=== PATIENT | female | born 1985 | race Caucasian/White ===

== ENCOUNTER 2022-12-22 12:54 | Inpatient (IN) | payer MEDICAID ==
[~2022-12-22] VITALS: Ht 160 cm; Wt 74.7 kg
[2022-12-22 13:17] LABS: BASOPHILS # (AUTO) 0.1 X10'3 (0-0.2); BASOPHILS % (AUTO) 0.9 % (0-1); EOSINOPHILS # (AUTO) 0.1 X10'3 (0-0.9); EOSINOPHILS % (AUTO) 0.9 % (0-6); HEMATOCRIT 40.4 % (35.0-45.0); HEMOGLOBIN 13.2 g/dl (12.0-16.0); LYMPHOCYTES # (AUTO) 2.3 X10'3 (1.1-4.8); LYMPHOCYTES % (AUTO) 25.1 % (21-51); MEAN CORPUSCULAR HEMOGLOBIN 28.3 PG (27.0-31.0); MEAN CORPUSCULAR HGB CONC 32.7 g/dL (33.0-36.5); MEAN CORPUSCULAR VOLUME 86.5 FL (78-98); MEAN PLATELET VOLUME 7.9 FL (7.4-10.4); MONOCYTES # (AUTO) 0.8 X10'3 (0-0.9); MONOCYTES % (AUTO) 9.2 % (2-12); NEUTROPHILS # (AUTO) 5.8 X10'3 (1.8-7.7); NEUTROPHILS % (AUTO) 63.9 % (42-75); PLATELET COUNT 317 X10'3 (140-440); RED BLOOD COUNT 4.67 X10'6 (4.20-5.60); RED CELL DISTRIBUTION WIDTH 15.4 % (11.5-14.5)
[2022-12-22] MEDS ORDERED: LORazepam 2 mg/ml vial ONE (13:52)
[2022-12-22] MEDS ORDERED: haloperidol lactate 5mg/ml inj ONE (13:53)
[2022-12-22] MEDS ORDERED: diphenhydrAMINE 50 mg/ml inj ONE (13:54)
--- NOTE | 2022-12-22 14:16 | NUR ---
Patient screaming "Put me in the insane assylum!", over and over and over again. Patient is suffering and given I.M. medications. Patient then talks to herself about being in the insane assylum. Continue to monitor.
[2022-12-22 14:27] LABS: URINE HCG NEGATIVE (NEG)
[2022-12-22 14:28] LABS: BILIRUBIN,URINE NEGATIVE (Neg); CLARITY,URINE SLIGHTLY CLOUDY (Clear); COLOR,URINE YELLOW (Yellow); GLUCOSE, URINE NEGATIVE (Neg); KETONES,URINE 15 mg/dl (Neg); LEUKOCYTE ESTERASE ,URINE TRACE (Neg); NITRITES, URINE NEGATIVE (Neg); OCCULT BLOOD,URINE NEGATIVE (Neg); PH,URINE 5.5 (4.8-8.0); PROTEIN,URINE NEGATIVE (Neg); UROBILINOGEN,URINE 0.2 E.U/dL (0.2-1.0)
[2022-12-22 14:37] LABS: URINE AMPHETAMINE SCREEN NEGATIVE (Neg); URINE BARBITUATE SCREEN NEGATIVE (Neg); URINE BENZODIAZEPINES SCREEN NEGATIVE (Neg); URINE CANNABINOID SCREEN NEGATIVE (Neg); URINE COCAINE SCREEN NEGATIVE (Neg); URINE METHADONE SCREEN NEGATIVE (Neg); URINE OPIATE SCREEN NEGATIVE (Neg); URINE PHENCYCLIDINE SCREEN NEGATIVE (Neg)
[2022-12-22 14:44] LABS: UA COLLECTION TYPE CLN CATCH MIDSTREAM
[2022-12-22 14:46] LABS: BACTERIA,URINE 1+ /HPF (Neg); MUCUS STRANDS MANY /LPF (Neg); RBC,URINE NONE SEEN /HPF (0-2); SQUAMOUS EPITHELIAL CELL,UR MANY /LPF (FEW); WBC,URINE 0-4 /HPF (0-4)
--- NOTE | 2022-12-22 14:54 | NUR ---
Patient is now calm. Patient is only oriented to self. 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 She is in the city of "[place]." Does not know the year. Patient attempting to call her sister on the phone but does not remember the phone number. Continue to monitor.
--- NOTE | 2022-12-22 14:56 | NUR ---
No external Meds noted. Patient states she doesn't have a doctor.
--- NOTE | 2022-12-22 17:03 | NUR ---
Patient continues to sleep. No distress observed. Continue to monitor.
--- NOTE | 2022-12-22 19:11 | NUR ---
Patient continues to sleep but easily awakens to voice. Respirations nonlabored. Continue to monitor.
[2022-12-22] MEDS: OLANZAPINE 5 MG TABLET PO SCH (20:00)
--- NOTE | 2022-12-22 21:10 | NUR ---
Patient sleeping on her left side. Respirations nonlabored. No distress observed. Continue with the plan of care which is evaluation with [facility] Therapist tomorrow.
--- NOTE | 2022-12-22 23:07 | NUR ---
Patient sleeping prone. Respirations nonlabored. No distress observed. Continue to monitor.
[2022-12-22] MEDS: nitrofuran monohydrate/nitrofuran macrocrysal 100 MG (MacroBID) capsule PO SCH (23:16)
--- NOTE | 2022-12-23 01:11 | NUR ---
Patient appears to be sleeping. Nonlabored respirations. Continue to monitor.
--- NOTE | 2022-12-23 03:08 | NUR ---
Patient sleeping on her right side. Respirations nonlabored. No distress observed. Continue to monitor.
--- NOTE | 2022-12-23 04:38 | NUR ---
Patient's packet faxed to [facility].
--- NOTE | 2022-12-23 07:15 | NUR ---
Pt was up used bathroom. Pt encouraged to drink fluids and given fresh pitcher of ice water.
[2022-12-23] MEDS: nitrofuran monohydrate/nitrofuran macrocrysal 100 MG (MacroBID) capsule PO SCH ×2 (07:22→20:59)
[2022-12-23] MEDS: OLANZAPINE 5 MG TABLET PO SCH ×2 (07:25→20:59)
--- NOTE | 2022-12-23 09:05 | NUR ---
Pt resting with eyes closed and noted repositioning self intermittently.
--- NOTE | 2022-12-23 13:15 | NUR ---
SPOKE WITH IMAN FROM [facility], REPORT GIVEN FOR POSSIBLE PLACEMENT
--- NOTE | 2022-12-23 18:50 | NUR ---
Patient up at nurses station asking to use the phone. Patient finally got the correct number and called her sister. No distress observed. Continue to monitor.
--- NOTE | 2022-12-23 20:07 | NUR ---
Patient coloring in her room. No distress observed. Continue to monitor.
--- NOTE | 2022-12-23 22:40 | NUR ---
Patient sleeping prone. Nonlabored respirations. Continue with the plan of care.
--- NOTE | 2022-12-24 00:19 | NUR ---
Patient sleeping on her left side. Respirations nonlabored. No distress observed. Continue to monitor.
--- NOTE | 2022-12-24 02:03 | NUR ---
Patient sleeping supine. Respirations equal and nonlabored. No distress observed. Continue to monitor.
--- NOTE | 2022-12-24 04:05 | NUR ---
Patient sleeping prone. No distress observed. Continue to monitor.
--- NOTE | 2022-12-24 05:55 | NUR ---
RN awoke patient to drink some water. No distress observed. Continue to monitor.
--- NOTE | 2022-12-24 06:56 | NUR ---
Patient sleeping on her left side. Respirations nonlabored. No distress observed. Continue to monitor.
[2022-12-24] MEDS: nitrofuran monohydrate/nitrofuran macrocrysal 100 MG (MacroBID) capsule PO SCH ×2 (08:04→21:06)
[2022-12-24] MEDS: OLANZAPINE 5 MG TABLET PO SCH (08:04)
--- NOTE | 2022-12-24 09:00 | NUR ---
Relieved primary nurse for a break. Pt lying in bed on her left side, appears to be sleeping, has not eaten her breakfast.
--- NOTE | 2022-12-24 13:52 | NUR ---
Patient wandering around the unit, comes to nursing station and repeatedly asks the same questions over and over.
--- NOTE | 2022-12-24 14:13 | NUR ---
HERE TECH RELIEF OF 10 AM. PT. ASKS MANY QUESTIONS, NO SI OR HI. PT PLANS TO HAVE VISITORS FROM HER YARSANI SHE GAVE PERMISSION TO COME TO SEE HER AND KNOW WHERE SHE IS, SHE ASKED TO HAVE HER MOORE COME TO SEE HER AND APPARENTLY CONTACTED HIM, PER THE MOORE.
--- NOTE | 2022-12-24 15:01 | NUR ---
Note ricki in ED - 12/24/22 at 1503 by GIOVANNI Patient awake on his bed. Mother is with [facility] cut off worker in her office. No s/sx of distress.
--- NOTE | 2022-12-24 15:04 | NUR ---
Patient pacing around in her room. Her visitors have left, and patient's back to asking questions that have already been answered.
--- NOTE | 2022-12-24 16:45 | NUR ---
Telma from [facility] came down and spoke to patient. She presented to [facility] who has accepted her to [facility].
[2022-12-24] MEDS ORDERED: acetaminophen 325mg tablet PO PRN ×2 (17:50)
[2022-12-24] MEDS ORDERED: magnesium hydroxide 30ml (MOM) UD suspension PO PRN (17:50)
[2022-12-24] MEDS ORDERED: mag hydrox/Alum hydrox/simeth 30ml oral suspension PO PRN (17:50)
[2022-12-24] MEDS ORDERED: loperamide 2mg capsule PO PRN (17:50)
--- NOTE | 2022-12-24 19:00 | NUR ---
Nursing Admission Note: The patient is a 37 year old female admitted on a 5150 hold for being a danger to herself and others. She was brought to the ER by [facility] law enforcement after she had repeated arrests for trespassing and stalking a former co-worker at [employer] where she had worked. She has been fired from her job. She currently has harassment and stalking charges pending. She has a mental health hx in [place]. On presentation to the ER she was agitated and yelling "I need to be in an insane asylum!" and was making delusional statements and was poorly oriented. On [facility] she presented as very anxious and was disorganized. She repeatedly forgot where her room was and she was poorly oriented to month.
[2022-12-24] MEDS ORDERED: NO HOME MEDS (19:44)
[2022-12-24] MEDS ORDERED: traZODone 50mg tablet PO PRN (19:45)
[2022-12-24 19:50] VITALS: BP 140/91; PULSE 83; RESP 18; TEMP 98.1; O2SAT 97
[2022-12-24] MEDS ORDERED: olanzapine 10mg tablet PO ONE (19:55)
[2022-12-24 20:50] VITALS: RESP 18; O2SAT 97
[2022-12-25 07:29] VITALS: BP 114/63; PULSE 87; RESP 16; TEMP 98.4; O2SAT 96
[2022-12-25 07:30] VITALS: RESP 16; O2SAT 96
[2022-12-25] MEDS: nitrofuran monohydrate/nitrofuran macrocrysal 100 MG (MacroBID) capsule PO SCH ×2 (09:43→20:14)
--- NOTE | 2022-12-25 17:49 | NUR ---
Nursing Progress Note Problem: The patient is a 37 year old female admitted on a 5150 hold for being a danger to herself and others. She was brought to the ER by [facility] law enforcement after she had repeated arrests for trespassing and stalking a former co-worker at [employer] where she had worked. She has been fired from her job. She currently has harassment and stalking charges pending. She has a mental health hx in [place]. On presentation to the ER she was agitated and yelling "I need to be in an insane asylum!" and was making delusional statements and was poorly oriented. Interventions: Introduced self and established rapport, maintained a safe and supportive environment, ensured contract for safety, provided clear and simple instructions, attempted to orient to reality, and maintained Q 15 min safety checks. Response: RN received pt. asleep in bed at start of shift. Pt. awoke for breakfast and took all medications. Pt. ate all meals in the community room. 1:1 done at bedside, pt. denies all psych symptoms. Pt. repeatedly asks if she will be discharged. Pt. gives minimal response regarding her reason for admission. Pt. mostly responds with one word replies. Pt. observed making multiple phone calls. Pt. perseverates on discharge. Pt. placed on 5250. In the afternoon pt. upset while talking on the phone and talking loudly. Pt. was able to calm down. Plan: Pt. continues to require medication adjustments and a safe and supportive environment.
[2022-12-25 19:45] VITALS: BP 147/87; PULSE 120; RESP 16; TEMP 98.5; O2SAT 99
--- NOTE | 2022-12-26 04:50 | NUR ---
Nursing Progress Note Problem: The patient is a 37 year old female admitted on a 5150 hold for being a danger to herself and others. She was brought to the ER by [facility] law enforcement after she had repeated arrests for trespassing and stalking a former co-worker at [employer] where she had worked. She has been fired from her job. She currently has harassment and stalking charges pending. She has a mental health hx in [place]. On presentation to the ER she was agitated and yelling "I need to be in an insane asylum!" and was making delusional statements and was poorly oriented. Interventions: Introduced self and established rapport, maintained a safe and supportive environment, ensured contract for safety, provided clear and simple instructions, attempted to orient to reality, and maintained Q 15 min safety checks. Response: Patient pleasant and cooperative with care; compliant with medication. PRN Trazodone provided. She denied SI, HI, A/VH. Patient expressed she has housing and access to food and clothing. She expressed she had a male peer at [employer] that she sometimes has the thought he is her boyfriend and doesn't know why because he is in a relationship; she continued she thought he was able to get her job back because "that's what he does; fires and rehires me." Patient appeared confused about her legal hold as she thought she was admitted voluntarily. Patient participated in HS snack prior to bed; observed sleeping and does not appear to be having difficulty. Plan: Pt. continues to require medication adjustments and a safe and supportive environment.
[2022-12-26 07:30] VITALS: RESP 18
[2022-12-26] MEDS: nitrofuran monohydrate/nitrofuran macrocrysal 100 MG (MacroBID) capsule PO SCH (07:50)
--- NOTE | 2022-12-26 13:52 | NUR ---
5250 released for GD
[2022-12-26] MEDS ORDERED: OLAN5TAB75 PO (15:23)
[2022-12-26] MEDS ORDERED: NITR100C11 PO (15:23)
--- NOTE | 2022-12-26 16:03 | NUR ---
DISCHARGE NOTE: Pt. discharged to home, picked up by friend in car. Pt. discharged with all belongings and valuables. RN went over all discharge paperwork and pt. verbalized understand of and signed all paperwork including f/u plan and discharge medications, firearms restriction, and emergency phone numbers including 911. Pt. denies SI/HI, A/V hallucinations. Pt. is A&Ox4 and in no apparent distress.
[2022-12-26] MEDS ORDERED: OLANZAPINE 5 MG TABLET PO SCH (21:00)
== END 2022-12-26 16:03 | disposition home or self-care (01) | DRG 751 ==
LOC: EDBD 12:55 → ER 12:55 → ED HOLD 12-24 16:35 → ADULT MH 12-24 17:40
PROVIDERS: ADMIT Psychiatry & Neurology Psychiatry; ATTEND Psychiatry & Neurology Psychiatry
DX: F23 Brief psychotic disorder (principal); F43.25 Adjustment disorder with mixed disturbance of emotions and conduct; Z20.822 Contact with and (suspected) exposure to COVID-19; Z56.0 Unemployment, unspecified; Z63.4 Disappearance and death of family member
CPT/HCPCS: 36415; 80053; 80305; 80320; 81001; 81025; 84443; 85025; 87081; 87811; 99285; J1200; J1630; J2060

== ENCOUNTER 2023-10-26 12:37 | Outpatient (CLI) | payer MEDICAID ==
[~2023-10-26 12:37] MED LIST: HYDR-3686 PO; OLAN10TA73 PO; OLAN5TAB3 PO; TRAZ-251 PO
== END 2023-10-26 23:59 | disposition home or self-care (01) ==
LOC: MRI 12:37
PROVIDERS: ATTEND Physician Assistant Medical
DX: G43.001 Migraine without aura, not intractable, with status migrainosus (principal); G31.89 Other specified degenerative diseases of nervous system; H74.8X3 Other specified disorders of middle ear and mastoid, bilateral; J34.89 Other specified disorders of nose and nasal sinuses
CPT/HCPCS: 70551

== ENCOUNTER 2023-12-03 16:03 | Emergency (ER) | payer MEDICAID ==
[~2023-12-03] VITALS: Ht 160 cm; Wt 95.6 kg
[2023-12-03] MEDS: diphenhydrAMINE 50 mg/ml inj IM ONE (16:41)
[2023-12-03] MEDS ORDERED: DIPH50CA36 PO (17:35)
[2023-12-03 17:52] VITALS: BP 121/101; PULSE 110; RESP 20; TEMP 98.1; O2SAT 96
== END 2023-12-03 17:53 | disposition home or self-care (01) ==
LOC: ER 16:04
DX: R45.1 Restlessness and agitation (principal); T50.995A Adverse effect of other drugs, medicaments and biological substances, initial encounter; F20.9 Schizophrenia, unspecified; F28 Other psychotic disorder not due to a substance or known physiological condition; Z79.899 Other long term (current) drug therapy; Y92.89 Other specified places as the place of occurrence of the external cause
CPT/HCPCS: 96372; 99283; J1200